=== PATIENT | female | born 1995 | race American Indian/Alaskan Native ===

== ENCOUNTER 2016-06-12 11:13 | Outpatient (CLI) | payer MEDICAID ==
[2016-06-12] MEDS ORDERED: PERCOCET 5/325 PO PRN (14:17)
--- NOTE | 2016-06-12 14:43 | Ultrasound Report ---
BIOPHYSICAL PROFILE: INDICATION: well being. Decreased movement. COMPARISON: None similar. TECHNIQUE: Transabdominal ultrasound with Doppler interrogation. 2 - breathing movements 2 - movements 2 - posture and tone 2 - Qualitative amniotic fluid volume 8 - TOTAL SCORE OF POSSIBLE 8 Heart Rate (bpm) 146
--- NOTE | 2016-06-12 14:46 | Ultrasound Report ---
OB LIMITED INDICATION: well being. Decreased movement. COMPARISON: None similar at this institution. TECHNIQUE: Transabdominal grayscale ultrasound with Doppler interrogation. Gestation: Yao Position: Cephalic Amniotic Fluid: WNL (7-24 cm) TARA = 11.7 cm Heart Rate: 146 BPM
== END 2016-06-12 15:49 | disposition home or self-care (01) ==
LOC: TRG 11:13
PROVIDERS: ATTEND Obstetrics & Gynecology
DX: O36.8190 Decreased fetal movements, unspecified trimester, not applicable or unspecified (principal); O77.9 Labor and delivery complicated by fetal stress, unspecified; O47.9 False labor, unspecified; Z3A.00 Weeks of gestation of pregnancy not specified
CPT/HCPCS: 59025; 76815; 76819

== ENCOUNTER 2016-06-13 16:05 | Inpatient (IN) | payer MEDICAID ==
[2016-06-13] MEDS ORDERED: ZOFRAN IV PRN (16:22)
[2016-06-13] MEDS ORDERED: BRETHINE IVP PRN (16:22)
[2016-06-13] MEDS ORDERED: ePHEDrine SULFATE IV PRN (16:22)
[2016-06-13] MEDS ORDERED: SUBLIMAZE IV PRN (16:22)
[2016-06-13] MEDS ORDERED: BRETHINE SUB-Q PRN (16:22)
[2016-06-13] MEDS ORDERED: MINERAL OIL PO PRN (16:22)
[2016-06-13] MEDS ORDERED: POLYCILLIN/NS 2 GM/100 ML 100 ML IV ONE ×2 (16:22→21:40)
--- NOTE | 2016-06-13 16:33 | History and Physical Report ---
History of Present Illness Date of examination: 06/13/16 Date of admission: 06/13/16 16:05 History of present illness: 20 yo EDC 06/17/16 @ 38.1 weeks gestation, presented for induction for elevated BP's at perinatologist today. Transfer into care at 31 weeks gestation , course complicated by morbid obesity with BMI of 51, questionable retroplacenta with MFM consult confirming negative accretta, anemia with iron TID, asthma with albuterol prn and HSV2. She is GBS positive. Past History Past Medical History: asthma, other (anemia) Past Surgical History: no surgical history [employer] History: herpes - Obstetrical History Expected Date of Delivery: 06/26/16 Actual Gestation: 38 Week(s) 2 Day(s) : 1 Medications and Allergies Allergies Allergy/AdvReac Type Severity Reaction Status Date / Time No Known Allergies Allergy Verified 09/23/13 11:02 Home Medications Medication Instructions Recorded Confirmed Last Taken Type ALBUTEROL Inhaler [ProAir HFA 1 puff IH Q4-6H PRN #1 inha 09/23/13 06/13/16 Rx Inhaler] Review of Systems All systems: negative - Physical Exam Genitourinary (Female): Positive: normal external genitalia, normal perenium - Obstetrical FHR: category 2 FHR comments: IV sedation at 0630, minimal variability Uterine Contraction Monitor Mode: External Cervical Dilatation: 1.5 Cervical Effacement Percentage: 50 station: -2 Uterine Contraction Pattern: Regular Uterine Tone Measurement Phase: Resting Uterine Contraction Intensity: Mild Results Result Diagrams: 06/13/16 20:40 06/13/16 22:00 All other labs normal. Assessment and Plan A: IUP @ 38.1 weeks gestation Induction of labor for elevated BP r/o PIH GBS positive Morbid Obesity Anemia Asthma p: MD consult AROM-thin meconium PIH labs-noted Collect missing labs GBS Prophylaxis Cytotec Induction(received one dose) Pitocin augmentation
[2016-06-13] MEDS ORDERED: PITOCin/NS 30 UNIT/500ML 500 ML IV SCH ×2 (17:00)
[2016-06-13] MEDS ORDERED: PITOCin/NS 20 UNIT/1000ML DRIP 1,000 ML IV SCH (17:00)
[2016-06-13] MEDS ORDERED: CYTOTEC VAGINAL SCH (17:00)
[2016-06-13 20:57] LABS: Hematocrit 31.7 % (30.3-42.9); Hemoglobin 10.7 gm/dl (10.1-14.3); Mean Corpuscular HGB Conc 34 % (30-34); Mean Corpuscular Hemoglobin 31 pg (28-32); Mean Corpuscular Volume 93 fl (79-97); Platelet Count 259 K/mm3 (140-440); Red Cell Distribution Width 15.2 % (13.2-15.2); White Blood Count 7.9 K/mm3 (4.5-11.0)
[2016-06-13] MEDS: LACTATED RINGERS 1,000 ML IV SCH (22:07)
[2016-06-13 22:57] LABS: Bilirubin,Urine NEG (Negative); Blood,Urine NEG (Negative); Ketones,Urine NEG (Negative); Leukocyte Esterase,Urine TR (Negative); Mucus,Urine FEW /HPF; Nitrite,Urine NEG (Negative); Urobilinogen,Urine < 2.0 mg/dL (<2.0)
[2016-06-13 23:22] LABS: Alanine Aminotransferase 12 units/L (7-56); Blood Urea Nitrogen 7 mg/dL (7-17)
[2016-06-13] MEDS: STADOL IV PRN (23:56)
[2016-06-14 00:02] LABS: Lactate Dehydrogenase 243 units/L (91-180); Uric Acid 5.5 mg/dL (3.5-7.6)
[2016-06-14] MEDS: POLYCILLIN/NS 1 GM/50 ML 50 ML IV SCH ×6 (02:16→22:03)
[2016-06-14] MEDS: STADOL IV PRN (02:20)
[2016-06-14] MEDS: LACTATED RINGERS 1,000 ML IV SCH (09:00)
--- NOTE | 2016-06-14 09:44 | Anesthesia Consultation ---
Anesthesia Consult and Med Hx Date of service: 06/14/16 - Airway Anesthetic Teeth Evaluation: Good ROM Head & Neck: Adequate Mental/Hyoid Distance: Adequate Mallampati Class: Class II Intubation Access Assessment: Probably Good - Pre-Operative Health Status ASA Pre-Surgery Classification: ASA3 Proposed Anesthetic Plan: Epidural, Spinal - Pulmonary Hx Asthma: Yes (reports taking proair) COPD: No Hx Pneumonia: No - Cardiovascular System Hx Hypertension: No - Central Nervous System Hx Seizures: No Hx Psychiatric Problems: No - Endocrine Hx Renal Disease: No Hx End Stage Renal Disease: No Hx Hypothyroidism: No Hx Hyperthyroidism: No - Hematic Hx Anemia: No Hx Sickle Cell Disease: No - Other Systems Hx Alcohol Use: No Hx Obesity: Yes (super obese BMI 53.9)
[2016-06-14] MEDS ORDERED: ePHEDrine SULFATE IV PRN (09:45)
[2016-06-14] MEDS ORDERED: NARCAN 2 MG/2 ML IV PRN (09:45)
[2016-06-14] MEDS: fentaNYL-BUPIV 2 MCG/ML-0.125% 100 ML EPIDURAL SCH ×2 (10:36→18:06)
[2016-06-14] MEDS ORDERED: XYLOCAINE 2% INFILTRATI ONE ×2 (17:38→17:55)
--- NOTE | 2016-06-14 17:45 | Event Note ---
Date: 06/14/16 S: Pain right side with contractions. c/o SOB O: VSS AF pulse ox 99%, pulse 90 RR: 20 FHT: category 1 UC: 1-2 x 70-80 MVU 200+ SVE: 3/60/-3/clear fluid A: IUP at term Latent Labor +GBS-adequate treatment Pain P: Epidural bolus per anesthesia Maternal position change
[2016-06-14] MEDS ORDERED: ePHEDrine SULFATE ONE (22:57)
[2016-06-15] MEDS: LACTATED RINGERS 1,000 ML IV SCH (00:56)
[2016-06-15] MEDS: fentaNYL-BUPIV 2 MCG/ML-0.125% 100 ML EPIDURAL SCH (00:57)
[2016-06-15] MEDS: POLYCILLIN/NS 1 GM/50 ML 50 ML IV SCH (02:01)
[2016-06-15] MEDS ORDERED: XYLOCAINE 2% INFILTRATI ONE (02:45)
[2016-06-15] MEDS ORDERED: CYTOTEC ONE (05:00)
[2016-06-15] MEDS ORDERED: METHERGINE IM ONE ×2 (05:00→05:31)
--- NOTE | 2016-06-15 05:29 | Procedure Note ---
OB Delivery Note - Delivery Date of Delivery: 06/15/16 (8-6oz male @ 0440) Surgeon: MASOOD HOU Estimated blood loss: 500cc - Vaginal Delivery presentation: vertex Delivery position: OA Intrapartum events: uterine atony Delivery induction: cervidil Delivery augmentation: rupture of membranes, pitocin Delivery monitor: external FHT, external uterine, internal FHT, internal uterine Route of delivery: Delivery placenta: spontaneous Delivery cord: 3 umbilical vessels Episiotomy: none Delivery laceration: 2nd degree Delivery repair: vicryl (3.0 CT) Anesthesia: local, intravenous, epidural - A at 1 minute: 2 at 5 minutes: 8 Infant Gender: Female ( viable femae in OA position over intact perineum and epidural anethesia, NICU present, floppy and carried to warmer for evaluation. Apgars 2/8. Spont placenta, sent to pathology. Cord gas collected. Pitocin infusing. Bleeding large, Methergine given, BP 130/80. Repair of laceration with 2% Lidocaine.)
[2016-06-15] MEDS ORDERED: PHENERGAN PR PRN (05:35)
[2016-06-15] MEDS ORDERED: MILK OF MAGNESIA PO PRN (05:35)
[2016-06-15] MEDS ORDERED: BENADRYL PO PRN (05:35)
[2016-06-15] MEDS ORDERED: ZOFRAN IV PRN (05:35)
[2016-06-15] MEDS ORDERED: PHENERGAN PO PRN (05:35)
[2016-06-15] MEDS ORDERED: DERMOPLAST TP PRN (05:35)
[2016-06-15] MEDS ORDERED: TYLENOL PO PRN (05:35)
[2016-06-15] MEDS ORDERED: DULCOLAX PR PRN (05:35)
[2016-06-15] MEDS ORDERED: TUCKS PAD TP PRN (05:35)
[2016-06-15 05:53] LABS: ISTAT Base Excess -8; ISTAT PCO2 39.4 (35-45); ISTAT PO2 58 (80-105); ISTAT SO2 86; ISTAT TCO2 20
[2016-06-15] MEDS ORDERED: SODIUM CHLORIDE FLUSH SYRINGE 10 ML IV PRN (06:00)
[2016-06-15] MEDS: NORCO 5/325 PO PRN ×2 (07:45→14:23)
[2016-06-15] MEDS: LANSINOH TP PRN ×2 (07:46→07:47)
[2016-06-15] MEDS: PRENATAL VITAMIN PO SCH (12:28)
[2016-06-15] MEDS: MOTRIN PO SCH ×2 (12:28→18:17)
[2016-06-15 19:14] LABS: Hemoglobin 8.5 gm/dl (10.1-14.3)
[2016-06-16] MEDS ORDERED: M-M-R II VACCINE SUB-Q ONE (05:35)
[2016-06-16] MEDS ORDERED: BOOSTRIX IM ONE (06:00)
[2016-06-16] MEDS: MOTRIN PO SCH ×3 (06:22→17:59)
--- NOTE | 2016-06-16 08:37 | Progress Note ---
Assessment and Plan PPD 1 s/p . Doing well. Plan for discharge on today Subjective - Subjective Date of service: 06/16/16 Patient reports: appetite normal, voiding normally, pain well controlled, ambulating normally [place]: doing well Objective - Vital Signs Latest vital signs: Vital Signs Temp Pulse Resp BP BP 06/16/16 00:00 97.9 F 88 16 122/76 06/15/16 16:42 98.2 F 88 18 119/72 06/15/16 14:23 20 06/15/16 11:40 98.8 F 97 H 20 126/76 Intake and Output 06/15/16 06/16/16 06/16/16 22:59 06:59 14:59 Intake Total 960 Balance 960 Intake: Oral 960 Other: Total, Intake Amount 480 - Exam Cardiovascular: Present: Regular rate, Normal S1 Lungs: Present: Clear to auscultation, Normal air movement Abdomen: Present: normal appearance, soft, normal bowel sounds Uterus: Present: normal, firm Extremities: Present: normal Deep Tendon Reflex Grade: Normal +2 - Labs Labs: Abnormal lab results 06/15/16 Range/Units 18:45 Hgb 8.5 L (10.1-14.3) gm/dl Hct 25.0 L D (30.3-42.9) %
--- NOTE | 2016-06-16 08:38 | Discharge Summary ---
Providers - Providers Date of Admission: 06/13/16 16:05 Date of discharge: 06/16/16 Attending physician: SERGIO RAMIREZ Primary care physician: KAYLI JAQUEZ Hospitalization Reason for admission: active labor Delivery: Episiotomy: none complications: none Discharge diagnosis: IUP at term delivered [place] baby: female Hospital course: unremarkable Condition at discharge: Good Disposition: DISCHARGED TO HOME OR SELFCARE Plan - Provider Discharge Summary Additional instructions: [] Smoking cessation referral if applicable(refer to patient education folder for contact #) [] Refer to [facility] Booklet Call your doctor immediately for: * Fever > 100.5 * Heavy vaginal bleeding ( >1 pad per hour) * Severe persistent headache * Shortness of breath * Reddened, hot, painful area to leg or breast * Drainage or odor from incision. * Keep incision clean and dry at all times and follow doctor's instructions regarding bathing/showering
[2016-06-16] MEDS: NORCO 5/325 PO PRN (16:30)
[2016-06-16] MEDS: PRENATAL VITAMIN PO SCH (17:59)
[2016-06-17] MEDS: MOTRIN PO SCH ×3 (06:00→06:45)
[2016-06-17 09:34] VITALS: BP 124/68
== END 2016-06-17 11:30 | disposition home or self-care (01) | DRG 774 ==
LOC: LD 16:05 → OB 06-15 06:30
PROVIDERS: ADMIT Obstetrics & Gynecology; ATTEND Obstetrics & Gynecology
PROC: 10E0XZZ Delivery of Products of Conception, External Approach (ICD-10-PCS; principal; 2016-06-15)
PROC: 0KQM0ZZ Repair Perineum Muscle, Open Approach (ICD-10-PCS; 2016-06-15)
PROC: 3E0S3CZ (ICD-10-PCS; 2016-06-15)
PROC: 00HU33Z Insertion of Infusion Device into Spinal Canal, Percutaneous Approach (ICD-10-PCS; 2016-06-15)
PROC: 3E0P7GC Introduction of Other Therapeutic Substance into Female Reproductive, Via Natural or Artificial Opening (ICD-10-PCS; 2016-06-15)
DX: O13.4 Gestational [pregnancy-induced] hypertension without significant proteinuria, complicating childbirth (principal); O99.52 Diseases of the respiratory system complicating childbirth; O62.2 Other uterine inertia; O99.214 Obesity complicating childbirth; E66.01 Morbid (severe) obesity due to excess calories; O99.824 Streptococcus B carrier state complicating childbirth; O99.02 Anemia complicating childbirth; J45.909 Unspecified asthma, uncomplicated; O70.1 Second degree perineal laceration during delivery; Z68.43 Body mass index [BMI] 50.0-59.9, adult; Z3A.38 38 weeks gestation of pregnancy; Z37.0 Single live birth
CPT/HCPCS: 36415; 81001; 82565; 82570; 82803; 83615; 84156; 84450; 84460; 84520; 84550; 85014; 85018; 85027; 85660; 86706; 86762; 86803; 86850; 86900; 86901; 88307; 90471; 90715; 99211; A6250; G0463; J0290; J0595; J2210; J2590; J3010; J7120

== ENCOUNTER 2016-07-19 09:22 | Outpatient (CLI) | payer MEDICAID | END 2016-07-19 09:23 | disposition home or self-care (01) | LOC: LABHHL 09:22 | PROVIDERS: ATTEND Surgery | DX: N61.0 Mastitis without abscess (principal) | CPT/HCPCS: 86403; 87116; 87186 ==

== ENCOUNTER 2017-05-30 14:16 | Emergency (ER) | payer MEDICAID ==
[2017-05-30 15:08] VITALS: BP 122/93
[2017-05-30 15:38] LABS: Hematocrit 36.7 % (30.3-42.9); Hemoglobin 11.7 gm/dl (10.1-14.3); Mean Corpuscular HGB Conc 32 % (30-34); Mean Corpuscular Hemoglobin 28 pg (28-32); Mean Corpuscular Volume 87 fl (79-97); Platelet Count 245 K/mm3 (140-440); Red Blood Count 4.23 M/mm3 (3.65-5.03); Red Cell Distribution Width 16.4 % (13.2-15.2); White Blood Count 5.2 K/mm3 (4.5-11.0)
[2017-05-30 15:47] LABS: Anion Gap 15 mmol/L; BUN/Creatinine Ratio 16; Blood Urea Nitrogen 11 mg/dL (7-17); Calcium 9.1 mg/dL (8.4-10.2); Carbon Dioxide 28 mmol/L (22-30); Chloride 101.7 mmol/L (98-107); Glucose 86 mg/dL (65-100); Potassium 4.4 mmol/L (3.6-5.0); Sodium 140 mmol/L (137-145)
[2017-05-30 17:11] LABS: Blastocytes % (Manual) 0 %
[2017-05-30 17:12] LABS: Anisocytosis 1+; Diff Status Complete; Large Platelets Rare; Platelet Estimate Cons
== END 2017-05-30 21:17 | disposition left against medical advice (07) ==
LOC: ED 14:16
DX: Z53.21 Procedure and treatment not carried out due to patient leaving prior to being seen by health care provider (principal)
CPT/HCPCS: 36415; 80048; 84703; 85007; 85025

== ENCOUNTER 2018-12-13 20:57 | Emergency (ER) | payer MEDICAID ==
--- NOTE | 2018-12-13 22:07 | Event Note ---
ED Screening Note Date of service: 12/13/18 Time: 22:02 ED Screening Note: This is a 23 y.o. F. that presents to the ER with pain to left side. Patient states she slipped on water at work and landed on left side. Reports pain to left elbow, low back and radiating to LLE. This initial assessment/diagnostic orders/clinical plan/treatment(s) is/are subject to change based on patients health status, clinical progression and re- assessment by fellow clinical providers in the ED. Further treatment and workup at subsequent clinical providers discretion. Patient/guardian urged not to elope from the ED as their condition may be serious if not clinically assessed and managed. Initial orders include: XR of L-spine and left elbow
--- NOTE | 2018-12-13 23:21 | XRay Report ---
LEFT ELBOW 3 VIEWS INDICATION: Left elbow pain after fall. COMPARISON: No relevant prior imaging study available. FINDINGS: No fracture, dislocation, or joint effusion. No foreign bodies. IMPRESSION: 1. No acute findings. LUMBAR SPINE 4 VIEWS INDICATION: low back pain s/p fall. COMPARISON: No relevant prior imaging study available. FINDINGS: Lumbar vertebral body height is maintained. There is no SI joint diastases. Alignment is normal. No s ignificant degenerative changes. IMPRESSION: 1. No acute findings. Signer Name: Mariano Herrera MD Signed: 12/13/2018 11:17 PM Workstation Name: [id number]
[2018-12-14] MEDS ORDERED: IBUPROFEN PO ONE (00:18)
[2018-12-14] MEDS ORDERED: PERCOCET 5/325 PO ONE (00:18)
[2018-12-14] MEDS ORDERED: ZOFRAN ODT PO ONE (00:19)
--- NOTE | 2018-12-14 00:50 | Emergency Department Report ---
ED General Adult HPI - General Chief complaint: Extremity Injury, Upper Stated complaint: LEG/ELBOW WORK INJURY Time Seen by Provider: 12/13/18 22:02 Source: patient Mode of arrival: Ambulatory Limitations: No Limitations - History of Present Illness Initial comments: Patient is a 23 year-old female with no past medical history who presents to the ED, in no acute onset persistent severe low back pain and left elbow pain after she slipped at work and fell down landing on the left elbow and her back about 4 hours ago. Patient denies head or neck injury, loss of consciousness, chest pain, shortness of breath, dizziness, change in vision, headache, numbness and tingling of upper and lower extremities bilaterally, syncope, seizures, urinary or bowel incontinence, saddle paresthesia, abdominal pain or nausea and vomiting. MD Complaint: left elbow pain, low back pain -: Sudden, hour(s) (4), This evening Location: back (lower), upper extremity (left elbow) Radiation: non-radiation Severity scale (0 -10): 7 Quality: aching, sharp Consistency: constant Improves with: none Worsens with: movement Associated Symptoms: denies other symptoms. denies: confusion, chest pain, cough, diaphoresis, fever/chills, headaches, loss of appetite, malaise, nausea/vomiting, rash, seizure, shortness of breath, syncope, weakness Treatments Prior to Arrival: none - Related Data Previous Rx's Medication Instructions Recorded Last Taken Type ALBUTEROL Inhaler (OR & NICU) 1 puff IH Q4-6H PRN #1 inha 09/23/13 06/09/16 Rx [ProAir HFA Inhaler] Ferrous Sulfate [Feosol 325 MG tab] 325 mg PO BID #60 tablet 06/16/16 Unknown Rx Ibuprofen [Motrin] 600 mg PO Q8H PRN #40 tablet 06/16/16 Unknown Rx Ibuprofen [Motrin] 800 mg PO Q8HR PRN #24 tablet 12/14/18 Unknown Rx Metaxalone [Skelaxin] 800 mg PO Q8H PRN #24 tablet 12/14/18 Unknown Rx traMADol [Ultram] 50 mg PO Q6HR PRN #15 tablet 12/14/18 Unknown Rx Allergies Allergy/AdvReac Type Severity Reaction Status Date / Time No Known Allergies Allergy Verified 09/23/13 11:02 ED Review of Systems ROS: Stated complaint: LEG/ELBOW WORK INJURY Other details as noted in HPI Constitutional: denies: chills, fever Eyes: denies: eye pain, eye discharge, vision change ENT: denies: ear pain, throat pain Respiratory: denies: cough, shortness of breath, wheezing Cardiovascular: denies: chest pain, palpitations Endocrine: no symptoms reported Gastrointestinal: denies: abdominal pain, nausea, diarrhea Genitourinary: denies: urgency, dysuria, discharge Musculoskeletal: back pain, arthralgia (LEFT ELBOW), other (LOW BACK PAIN). denies: joint swelling Skin: denies: rash, lesions Neurological: denies: headache, weakness, paresthesias Psychiatric: denies: anxiety, depression Hematological/Lymphatic: denies: easy bleeding, easy bruising ED Past Medical Hx - Past Medical History Hx Hypertension: No Hx Congestive Heart Failure: No Hx Diabetes: No Hx Deep Vein Thrombosis: No Hx Renal Disease: No Hx Sickle Cell Disease: No Hx Seizures: No Hx Asthma: Yes (reports taking proair) Hx COPD: No Hx HIV: No - Social History Smoking Status: Never Smoker - Medications Home Medications: Home Medications Medication Instructions Recorded Confirmed Last Taken Type ALBUTEROL Inhaler (OR & NICU) 1 puff IH Q4-6H PRN #1 inha 09/23/13 06/13/16 06/09/16 Rx [ProAir HFA Inhaler] Ferrous Sulfate [Feosol 325 MG tab] 325 mg PO BID #60 tablet 06/16/16 Unknown Rx Ibuprofen [Motrin] 600 mg PO Q8H PRN #40 tablet 06/16/16 Unknown Rx Ibuprofen [Motrin] 800 mg PO Q8HR PRN #24 tablet 12/14/18 Unknown Rx Metaxalone [Skelaxin] 800 mg PO Q8H PRN #24 tablet 12/14/18 Unknown Rx traMADol [Ultram] 50 mg PO Q6HR PRN #15 tablet 12/14/18 Unknown Rx ED Physical Exam - General Limitations: No Limitations General appearance: alert, in no apparent distress - Head Head exam: Present: atraumatic, normocephalic, normal inspection - Eye Eye exam: Present: normal appearance, PERRL, EOMI. Absent: scleral icterus Pupils: Present: normal accommodation - ENT ENT exam: Present: normal exam, normal orophraynx, mucous membranes moist, TM's normal bilaterally, normal external ear exam - Neck Neck exam: Present: normal inspection, full ROM. Absent: tenderness - Respiratory Respiratory exam: Present: normal lung sounds bilaterally. Absent: respiratory distress, wheezes, rhonchi, stridor, chest wall tenderness, accessory muscle use, decreased breath sounds - Cardiovascular Cardiovascular Exam: Present: regular rate, normal rhythm, normal heart sounds. Absent: systolic murmur, diastolic murmur, rubs, gallop - GI/Abdominal GI/Abdominal exam: Present: soft, normal bowel sounds. Absent: distended, t enderness, hyperactive bowel sounds - Rectal Rectal exam: Present: deferred - Extremities Exam Extremities exam: Present: normal inspection, tenderness (left elbow, with limited ROM due to pain), normal capillary refill, joint swelling (left elbow) - Back Exam Back exam: Present: normal inspection, tenderness (Palpable lumbosacral paraspinal musculoskeletal tenderness), muscle spasm, paraspinal tenderness - Neurological Exam Neurological exam: Present: alert, oriented X3, CN II-XII intact, normal gait, reflexes normal - Psychiatric Psychiatric exam: Present: normal affect, normal mood - Skin Skin exam: Present: warm, dry, intact, normal color. Absent: rash ED Course Vital Signs 12/13/18 22:03 Temperature 98.3 F Pulse Rate 83 Respiratory 20 Rate Blood Pressure 139/96 O2 Sat by Pulse 99 Oximetry - Reevaluation(s) Reevaluation #1: 12/14/18 00:54 Patient is alert and oriented 3 and is not in distress. The vital signs are stable. Patient was treated for pain in the ED and the left elbow x-ray shows no acute fractures or subluxations. The L-spine x-ray shows no acute fractures or subluxations. On reevaluation, patient's pain is well controlled with medications. The patient was discharged home on pain medications and muscle re laxants, and advised to follow up with her primary care physician in 5-7 days for reevaluation or return to the ED immediately if symptoms get worse. ED Medical Decision Making - Radiology Data Radiology results: report reviewed, image reviewed L-spine x-ray: No acute fractures or subluxations Left elbow x-ray: No fractures or subluxations - Medical Decision Making Patient is alert and oriented 3 and is not in distress. The vital signs are stable. Patient was treated for pain in the ED and the left elbow x-ray shows no acute fractures or subluxations. The L-spine x-ray shows no acute fractures or subluxations. On reevaluation, patient's pain is well controlled with medications. The patient was discharged home on pain medications and muscle relaxants, and advised to follow up with her primary care physician in 5-7 days for reevaluation or return to the ED immediately if symptoms get worse. - Differential Diagnosis Left elbow fracture; Muscle spasm of back, Lumbar disc fracture Critical care attestation.: If time is entered above; I have spent that time in minutes in the direct care of this critically ill patient, excluding procedure time. ED Disposition Clinical Impression: Spasm of muscle of lower back Sprain of left elbow Qualifiers: Encounter type: initial encounter Qualified Code(s): S53.402A - Unspecified sprain of left elbow, initial encounter Acute low back pain Qualifiers: Back pain laterality: unspecified Sciatica presence: without sciatica Qualified Code(s): M54.5 - Low back pain Disposition: TO HOME OR SELFCARE Is pt being admited?: No Does the pt Need Aspirin: No Condition: Stable Instructions: Elbow Sprain (ED), Muscle Spasm (ED), Acute Low Back Pain (ED) Additional Instructions: Take medications with food, drink plenty of fluids and follow-up with your primary care physician in 5-7 days for reevaluation. Return to the ED immediately if symptoms get worse. Prescriptions: Ibuprofen [Motrin] 800 mg PO Q8HR PRN #24 tablet PRN Reason: Pain , Severe (7-10) Metaxalone [Skelaxin] 800 mg PO Q8H PRN #24 tablet PRN Reason: Spasms traMADol [Ultram] 50 mg PO Q6HR PRN #15 tablet PRN Reason: Pain Referrals: KRISTEL ESCALERA MD [Primary Care Provider] - 3-5 Days Forms: Work/School Release Form(ED) Time of Disposition: 00:48 Print Language: SINHAL[place]
[2018-12-14 01:00] VITALS: BP 133/92
== END 2018-12-14 01:00 | disposition home or self-care (01) ==
LOC: ED 20:57
DX: S53.402A Unspecified sprain of left elbow, initial encounter (principal); M54.5 Low back pain; M62.830 Muscle spasm of back; J45.909 Unspecified asthma, uncomplicated; Z79.899 Other long term (current) drug therapy; W01.0XXA Fall on same level from slipping, tripping and stumbling without subsequent striking against object, initial encounter; Y93.89 Activity, other specified; Y92.89 Other specified places as the place of occurrence of the external cause; Y99.0 Civilian activity done for income or pay
CPT/HCPCS: 72100; 99283; Q0162